=== PATIENT | male | born 1985 | race African-American/Black ===

== ENCOUNTER 2021-10-14 12:10 | Emergency (ER) | payer OTHER ==
[~2021-10-14 12:10] MED LIST: BACTRIM DS TAB1 EACH PO; FLEXERIL10 MG PO; VOLTAREN **OUT75 MG PO
[2021-10-14 14:53] LABS: BASOPHIL 0.6 % (0-2); EOSINOPHIL 1.2 % (0-5); HCT 47.7 % (42.0-52.0); HGB 16.3 g/dl (13.2-18.0); LYMPHOCYTE 20.8 % (15-48); MCH 31.4 pg (25.0-31.0); MCHC 34.2 g/dL (32.0-36.0); MCV 91.9 fL (78.0-100.0); MONOCYTE 7.5 % (0-12); MPV 9.4 fL (6.0-9.5); NEUTROPHIL 69.5 % (41-80); NRBC 0; PLT 281 K/uL (150-400); RBC 5.19 M/uL (4.70-6.00); RDW 12.6 % (11.5-14.0); WBC 10.5 K/uL (4.0-10.5)
[2021-10-14 15:23] LABS: ALBUMIN 3.6 g/dL (3.4-5.0); BILIRUBIN - TOTAL 0.6 mg/dL (0.2-1.0); BUN/CREAT RATIO (CALC) 5.1 RATIO; CREATININE 1.18 mg/dL (0.67-1.17); GLOBULIN (CALCULATION) 3.5 g/dL; TOTAL PROTEIN 7.1 g/dL (6.4-8.2)
[2021-10-14] MEDS ORDERED: PRINIVIL10 MG PO (17:14)
== END 2021-10-14 17:25 | disposition home or self-care (01) ==
LOC: FER 12:10
PROVIDERS: Nurse Practitioner Family
DX: G43.909 Migraine, unspecified, not intractable, without status migrainosus (principal); I10 Essential (primary) hypertension; Z28.310 Unvaccinated for COVID-19
CPT/HCPCS: 36415; 70450; 80053; 84484; 85025; 93005; J1100; J1200; J2405; J7030